=== PATIENT | female | born 2000 | race Caucasian/White ===

== ENCOUNTER 2024-10-05 08:23 | Emergency (ER) | payer BC, SELFPAY ==
[2024-10-05 08:32] VITALS: BP 165/95
--- NOTE | 2024-10-05 09:46 | ED.GENMED ---
History of Present Illness
General
Chief Complaint: Bowel Problem
Source: patient
Exam Limitations: none
Time Seen by Provider: 10/05/24 09:27
Nursing documentation reviewed up to this point in time: agreed with
History of Present Illness
History of Present Illness:
Note:
CHIEF COMPLAINT(S)
Constipation and abdominal bloating.
HISTORY OF PRESENT ILLNESS
The patient is a 24-year-old female who presents with constipation and abdominal bloating. She reports that she has not had a bowel movement since Thursday and is experiencing persistent discomfort in her abdomen, which she describes as more
uncomfortable than painful. The patient states she feels 'bloated' and has the sensation of needing to defecate but is unable to do so despite the urge. She mentions a previous prescription for a higher dose of laxative medication, attributed to
[facility] for use on an as-needed basis due to constipation. Although she tried this medication, it did not resolve her current symptoms. She also reports nausea but denies vomiting. The patient drinks a gallon of water daily and generally does not
experience such issues. Past interventions for similar symptoms were as needed rather than regular use.
ADDITIONAL HISTORY OBTAINED FROM SOURCES OTHER THAN THE PATIENT
Not applicable.
CHRONIC MEDICAL CONDITIONS SIGNIFICANTLY AFFECTING CARE
The patient has a history of Von Willebrand disease, which is currently more regulated with control medication.
SOCIAL HISTORY
The patient reports that she was previously on control medication and consumes a significant amount of literature as a hobby. No alcohol, tobacco, or illicit drug use was mentioned.
REVIEW OF SYSTEMS
- Gastrointestinal: Persistent abdominal bloating, discomfort with sensation of needing to defecate, constipation for five days, and nausea.
- General: Reports a feeling of being uncomfortable.
- Obstetric: Negative test was confirmed prior to imaging.
PHYSICAL EXAM
- General: Nursing notes and vital signs reviewed. The patient ambulates without difficulty.
- Gastrointestinal: Abdominal examination revealed softness, tenderness, distension, and was warm to the touch, but no rashes were noted.
- Cardiovascular: Heart sounds normal with S1 and S2 noted; no third heart sound or murmurs detected.
- Respiratory: Lungs clear to auscultation.
-rectal exam guaiac neg brown stool, no fecal impaction
PROBLEM LIST
Acute:
- Constipation
- Abdominal bloating and discomfort
- Nausea
PLAN
- Obtain an abdominal X-ray to assess for stool impaction.
- Administer magnesium citrate to help alleviate constipation.
- Confirm negative test result to proceed with imaging safely.
DIFFERENTIAL DIAGNOSIS
The Differential Diagnosis includes, in no particular order and is not limited to:
1. Functional constipation
2. Intestinal obstruction
3. Irritable Bowel Syndrome
4. Gastrointestinal infection
5. Hypothyroidism
6. Electrolyte imbalance
7. Colonic inertia
8. Celiac disease
9. Inflammatory bowel disease
10. Medication-induced constipation
CARE-UPDATE
10/05/24 - 10:42
The obstruction series indicates constipation without signs of free air or bowel obstruction. Plan to administer an enema and start the patient on Miralax for one week. Patient advised to follow up with primary care provider.
Disposition:
SUMMARY OF ENCOUNTER
The patient, a 24-year-old female, presented with constipation and abdominal bloating. She reported not having a bowel movement since Thursday, accompanied by abdominal discomfort and nausea. Despite using a previous prescription for a higher dose
laxative, symptoms persisted. Upon physical examination, the abdomen was soft, tender, distended, and warm, yet without rashes. An abdominal X-ray was obtained, confirming constipation without signs of bowel obstruction.
ASSESSMENT
The patient likely suffers from functional constipation exacerbated by lifestyle or dietary factors. Other serious conditions were less likely based on current findings and tests.
PLAN
The plan includes administering magnesium citrate and starting the patient on Miralax for one week. The negative test allows proceeding with imaging safely. The patient is advised to have a follow-up appointment with her primary care
provider.
INDEPENDENT INTERPRETATION OF TESTS
- My independent interpretation of the abdominal X-ray shows constipation without evidence of bowel obstruction.
MEDICATION RECONCILIATION
- A dose of magnesium citrate was administered to alleviate constipation.
- Prescribed Miralax for daily use for one week.
MEDICAL DECISION MAKING
Number and Complexity of Problems Addressed: The patient presented with acute constipation and abdominal bloating. Functional constipation was determined as the primary issue, given the tests and physical examination.
Data: Evaluated the abdominal X-ray which confirmed constipation, analyzed potential differential diagnoses, and determined appropriate tests and treatment strategies.
Risk: Considered potential need for hospitalization if symptoms worsen. Prescription drug management was applied for constipation relief. Social determinants minimally impacted the care plan.
Phy Exam
Physical Exam
Physical Exam:
.
Course
Orders/Labs/Results
Orders:
Orders
10/05/24 09:34
Abdominal Series [CR Obstruct Series W/pa Chest] Urgent
Comment:
Reason For Exam: No movement 5 days
10/05/24 09:40
Test Result ONCE
10/05/24 09:49
, Urine Qualitative Screen [HCG, Urine Qualitative Screen] Urgent
Date Specimen was Collected: 10/05/24
Time Specimen was Collected: 09:40
10/05/24 10:45
Magnesium Citrate [Citroma] 300 ml PO ONCE ONE
Vital Signs
Initial and Last Documented VS:
Initial Vital Signs
Temp Pulse Resp BP Pulse Ox
98.7 F 71 18 165/95 99
10/05/24 08:32 10/05/24 08:32 10/05/24 08:32 10/05/24 08:32 10/05/24 08:32
Last Documented Vital Signs
Temp Pulse Resp BP Pulse Ox
98.7 F 71 18 165/95 99
10/05/24 08:32 10/05/24 08:32 10/05/24 08:32 10/05/24 08:32 10/05/24 08:32
*Pulse Oximetry
Patient hypoxic: no (99 on RA)
*Critical Care Note
Total Time (30-74mins, 75-104mins- exclusive of procedures): Not Applicable
ED Attending Note
-
Portions of this chart may have been created with voice recognition software.� Occasional wrong word or��sound alike� substitutions may have occurred due to the inherent limitations of voice recognition software.
Discharge Plan
Departure
Patient Disposition: Home (Routine Discharge)
Date of Disposition: 10/05/24
Time of Disposition: 10:49
Patient with high blood pressure during this ER visit?: Yes
Condition: Good
Discharge Problem:
Constipation
Instructions: Abdominal Pain, Constipation, Adult (DC), BLOOD PRESSURE
Prescriptions:
No Action
acetaminophen [Tylenol Extra Strength] 500 MG tablet
500 mg PO Q4HPRN PRN (Reason: pain)
tranexamic acid 650 MG tablet
2 tab PO Q8
Patient Comments:
Patient started this treatment on 11/07/2019 @ 2000. Will continue this dose for the next 7 days.
Propranolol
60 mg PO DAILY
desmopressin 150 MCG/0.1 ML spray,non-aerosol
1 mcg intranasal .PRIOR TO SURGERY
Patient Comments:
Instructed by surgeon to use 90' prior to surgery
Lo-Estrogen Control
1 tab PO DAILY
Referrals:
Navarro Gambino DO [Family Provider, Family Practice] - Call in 1-3 days for appt
Interventions
Interventions:
*Risk Screen - Suicide Last Done: 10/05/24 08:32
*General Assessment Last Done: 10/05/24 08:32
*Neglect/Abuse Screening Last Done: 10/05/24 08:32
XO-Eulwds-Ciwacbuzpd Assessment Last Done: 10/05/24 09:31
Discharge Date and Time
Print Language: BULGARIAN
[2024-10-05 10:13] LABS: HCG, Urine Qualitative Screen Negative
[2024-10-05 10:59] VITALS: BP 113/66
[2024-10-05] MEDS: CITROMA 300 ML PO (10:59)
== END 2024-10-05 11:17 | disposition home or self-care (01) ==
LOC: EMR 08:23
PROVIDERS: EMERGENCY PHYSICIAN Emergency Medicine; FAMILY PHYSICIAN Family Medicine
DX: K59.00 Constipation, unspecified (principal); D68.00 Von Willebrand disease, unspecified; Z92.0 Personal history of contraception
CPT/HCPCS: 99284; 74022; 81025